=== PATIENT | female | born 1985 | race Caucasian/White ===

== ENCOUNTER 2016-11-11 19:45 | Emergency (ER) | payer SELFPAY ==
[~2016-11-11] VITALS: Ht 165.1 cm; Wt 123.2 kg
[~2016-11-11 19:45] MED LIST: AMOX/K CLAV875 M1 PO; AMOXICILLIN500 MG PO; FLEXERIL PO; FLONASE NASAL50 MCG; LORTAB 10-325 M1 TAB PO; MEDDOSEPAK PO; NAPROXEN375 MG PO; ROBITUSSIN AC10 ML PO; TUSSIONEX1 ML PO; ULTRAM50 M1 PO
[2016-11-11 21:10] VITALS: BP 116/73
== END 2016-11-11 21:15 | disposition home or self-care (01) | DRG 761 ==
LOC: ED 19:45
DX: N93.8 Other specified abnormal uterine and vaginal bleeding (principal)

== ENCOUNTER 2017-03-06 20:26 | Emergency (ER) | payer BC ==
[~2017-03-06] VITALS: Ht 165.1 cm; Wt 126.4 kg
[2017-03-06] MEDS ORDERED: NAPROSYN500 MG PO (20:49)
[2017-03-06 20:57] VITALS: BP 135/81
== END 2017-03-06 21:00 | disposition home or self-care (01) | DRG 159 ==
LOC: ED 20:26
DX: M26.601 Right temporomandibular joint disorder, unspecified (principal); H92.01 Otalgia, right ear

== ENCOUNTER 2017-04-18 04:32 | Emergency (ER) | payer BC ==
[~2017-04-18] VITALS: Ht 165.1 cm; Wt 100.0 kg
[~2017-04-18 04:32] MED LIST changes: +NAPROSYN500 MG PO
[2017-04-18] MEDS ORDERED: LORTAB 1010 MG PO (04:57)
[2017-04-18] MEDS ORDERED: AMOXICILLIN500 MG PO (04:57)
[2017-04-18 04:59] VITALS: BP 139/88
== END 2017-04-18 05:04 | disposition home or self-care (01) | DRG 159 ==
LOC: ED 04:32
DX: K04.7 Periapical abscess without sinus (principal); K08.89 Other specified disorders of teeth and supporting structures

== ENCOUNTER 2017-08-13 09:57 | Emergency (ER) | payer BC ==
[~2017-08-13] VITALS: Ht 165.1 cm; Wt 120.0 kg
[~2017-08-13 09:57] MED LIST changes: +LORTAB 1010 MG PO
[2017-08-13 11:29] LABS: HEMATOCRIT 39.7 % (37.0-47.0); HEMOGLOBIN 12.2 g/dl (12.0-16.0); IMMATURE GRANULOCYTES 0.4 % (0.0-1.0); MEAN CELL VOLUME 85.2 fL CALC (80.0-100.0); MEAN CORPUSCULAR HGB 26.2 pG CALC (26.0-32.0); MEAN CORPUSCULAR HGB CONC 30.7 g/L CALC (32.0-36.0); NEUT# 5.35 thou/uL (2.00-7.15); RED BLOOD COUNT 4.66 mill/uL (4.20-5.60); RED CELL DISTRI WIDTH 14.1 % (11.5-15.5)
[2017-08-13 11:42] LABS: ANION GAP 17 (6-22 (CALC)); BUN 12 mg/dL (7-17); BUN/CREATININE RATIO 15 (12-20 (CALC)); CARBON DIOXIDE 24 mmol/l (22-30); CHLORIDE 103 mmol/l (95-108); CREATININE 0.8 mg/dL (0.5-1.0); GFR > 60 ML/MIN (>=60 (CALC)); GFR FOR AFR.AMER. > 60 ML/MIN (>=60 (CALC)); POTASSIUM 3.8 mmol/l (3.5-5.1); SODIUM 140 mmol/l (137-146)
[2017-08-13] MEDS ORDERED: MOTRIN400 MG PO (12:13)
[2017-08-13] MEDS ORDERED: ASPERCREME LIDOCA41 TOP (12:13)
[2017-08-13 12:30] VITALS: BP 136/88
== END 2017-08-13 12:30 | disposition home or self-care (01) | DRG 563 ==
LOC: ED 09:57
PROVIDERS: Family Medicine
DX: S46.911A Strain of unspecified muscle, fascia and tendon at shoulder and upper arm level, right arm, initial encounter (principal); R55 Syncope and collapse; W01.0XXA Fall on same level from slipping, tripping and stumbling without subsequent striking against object, initial encounter; Y92.009 Unspecified place in unspecified non-institutional (private) residence as the place of occurrence of the external cause

== ENCOUNTER 2017-11-02 04:42 | Emergency (ER) | payer BC ==
[~2017-11-02] VITALS: Ht 165.1 cm; Wt 125.0 kg
[~2017-11-02 04:42] MED LIST changes: +ASPERCREME LIDOCA41 TOP; +MOTRIN400 MG PO
[2017-11-02] MEDS ORDERED: POLYTRIM OS (05:01)
[2017-11-02 05:08] VITALS: BP 123/67
== END 2017-11-02 05:19 | disposition home or self-care (01) | DRG 125 ==
LOC: ED 04:42
DX: H00.016 Hordeolum externum left eye, unspecified eyelid (principal)

== ENCOUNTER 2018-01-04 05:03 | Emergency (ER) | payer BC ==
[~2018-01-04] VITALS: Ht 165.1 cm; Wt 125.0 kg
[~2018-01-04 05:03] MED LIST changes: +POLYTRIM OS
[2018-01-04] MEDS ORDERED: PERCOCET 5/325M1 TAB PO (05:54)
[2018-01-04] MEDS ORDERED: AMOXICILLIN500 MG PO (05:54)
[2018-01-04 06:06] VITALS: BP 118/66
== END 2018-01-04 06:10 | disposition home or self-care (01) | DRG 153 ==
LOC: ED 05:03
DX: H66.93 Otitis media, unspecified, bilateral (principal)

== ENCOUNTER 2018-01-25 10:08 | Emergency (ER) | payer BC ==
[~2018-01-25] VITALS: Ht 165.1 cm; Wt 128.1 kg
[~2018-01-25 10:08] MED LIST changes: +PERCOCET 5/325M1 TAB PO
[2018-01-25 11:47] LABS: HEMATOCRIT 41.3 % (37.0-47.0); HEMOGLOBIN 12.8 g/dl (12.0-16.0); IMMATURE GRANULOCYTES 0.3 % (0.0-5.0); MEAN CELL VOLUME 85.2 fL CALC (80.0-100.0); MEAN CORPUSCULAR HGB 26.4 pG CALC (26.0-32.0); NEUT# 5.06 thou/uL (2.00-7.15); RED BLOOD COUNT 4.85 mill/uL (4.20-5.60)
[2018-01-25 11:49] LABS: URINE BILIRUBIN - DIPSTICK NEGATIVE (NEGATIVE); URINE BLOOD DIPSTICK NEGATIVE (NEGATIVE); URINE COLOR YELLOW; URINE GLUCOSE - DIPSTICK NEGATIVE (NEGATIVE); URINE KETONE NEGATIVE (NEGATIVE); URINE LEUK ESTERASE NEGATIVE (NEGATIVE); URINE NITRITE - DIPSTICK NEGATIVE (Negative); URINE PROTEIN - DIPSTICK NEGATIVE (NEG-TRACE); URINE UROBILINOGEN - DIPSTICK 0.2 E.U./dL (0.2)
[2018-01-25 11:52] LABS: URINE CLARITY CLEAR
[2018-01-25 12:03] LABS: ALBUMIN 4.3 g/dL (3.2-5.0); ALKALINE PHOSPHATASE 87 u/l (38-126); ANION GAP 15 (6-22 (CALC)); BILIRUBIN, TOTAL 0.5 mg/dL (0.0-1.4); BUN 14 mg/dL (7-17); BUN/CREATININE RATIO 20 (12-20 (CALC)); CARBON DIOXIDE 25 mmol/l (22-30); CHLORIDE 104 mmol/l (95-108); CREATININE 0.7 mg/dL (0.5-1.0); GFR > 60 ML/MIN (>=60 (CALC)); GFR FOR AFR.AMER. > 60 ML/MIN (>=60 (CALC)); LIPASE 45 u/l (23-300); POTASSIUM 4.7 mmol/l (3.5-5.1); SGOT/AST 23 u/l (14-36); SODIUM 139 mmol/l (137-146); TOTAL PROTEIN 7.8 g/dL (6.3-8.2)
[2018-01-25] MEDS ORDERED: PEPCID20 MG PO (13:11)
[2018-01-25 13:20] VITALS: BP 117/74
== END 2018-01-25 13:20 | disposition home or self-care (01) | DRG 392 ==
LOC: ED 10:08
DX: R10.31 Right lower quadrant pain (principal); E66.9 Obesity, unspecified
CPT/HCPCS: Q9967

== ENCOUNTER 2018-02-21 20:32 | Emergency (ER) | payer BC ==
[~2018-02-21] VITALS: Ht 165.1 cm; Wt 129.2 kg
[~2018-02-21 20:32] MED LIST changes: +PEPCID20 MG PO
[2018-02-21 20:35] VITALS: BP 127/77
[2018-02-21 21:19] LABS: HEMOGLOBIN 10.9 g/dl (12.0-16.0); IMMATURE GRANULOCYTES 1.1 % (0.0-5.0); MEAN CELL VOLUME 85.1 fL CALC (80.0-100.0); MEAN CORPUSCULAR HGB 26.7 pG CALC (26.0-32.0); MEAN CORPUSCULAR HGB CONC 31.3 g/L CALC (32.0-36.0); RED BLOOD COUNT 4.09 mill/uL (4.20-5.60); RED CELL DISTRI WIDTH 14.9 % (11.5-15.5)
[2018-02-21 21:20] LABS: URINE BILIRUBIN - DIPSTICK NEGATIVE (NEGATIVE); URINE BLOOD DIPSTICK NEGATIVE (NEGATIVE); URINE COLOR YELLOW; URINE GLUCOSE - DIPSTICK NEGATIVE (NEGATIVE); URINE KETONE NEGATIVE (NEGATIVE); URINE LEUK ESTERASE NEGATIVE (NEGATIVE); URINE NITRITE - DIPSTICK NEGATIVE (Negative); URINE PH 5.5 (4.5-8.0); URINE PROTEIN - DIPSTICK NEGATIVE (NEG-TRACE); URINE SPECIFIC GRAVITY >=1.030; URINE UROBILINOGEN - DIPSTICK 0.2 E.U./dL (0.2)
[2018-02-21 21:37] LABS: HEMATOCRIT 34.8 % (37.0-47.0); MANUAL DIFFERENTIAL YES; PLATELET COUNT 243 thou/uL (130-400)
[2018-02-21 21:38] LABS: BAND 17 % (0-8)
[2018-02-21 21:46] LABS: INFLUENZA A NONE DETECTED (NONE DETECT); INFLUENZA B NONE DETECTED (NONE DETECT)
[2018-02-21 21:48] LABS: URINE CLARITY CLEAR
[2018-02-21] MEDS ORDERED: BACTRIM DS1 TAB PO (22:09)
[2018-02-21] MEDS ORDERED: FIORICET PO (22:09)
== END 2018-02-21 22:24 | disposition home or self-care (01) | DRG 103 ==
LOC: ED 20:32
PROVIDERS: Family Medicine
DX: G44.209 Tension-type headache, unspecified, not intractable (principal); N61.0 Mastitis without abscess; M25.561 Pain in right knee; R50.9 Fever, unspecified

== ENCOUNTER 2018-09-05 19:27 | Emergency (ER) | payer BC ==
[~2018-09-05] VITALS: Ht 165.1 cm; Wt 118.2 kg
[~2018-09-05 19:27] MED LIST changes: +BACTRIM DS1 TAB PO; +FIORICET PO
[2018-09-05] MEDS ORDERED: CORTISPORIN OTI10 M2 AU (20:28)
[2018-09-05] MEDS ORDERED: AMOXICILLIN875 MG PO (20:28)
[2018-09-05 20:30] VITALS: BP 127/79
== END 2018-09-05 20:30 | disposition home or self-care (01) | DRG 153 ==
LOC: ED 19:27
DX: H66.93 Otitis media, unspecified, bilateral (principal); H60.93 Unspecified otitis externa, bilateral

== ENCOUNTER 2018-10-23 23:08 | Emergency (ER) | payer BC ==
[~2018-10-23] VITALS: Ht 165.1 cm; Wt 117.0 kg
[~2018-10-23 23:08] MED LIST changes: +AMOXICILLIN875 MG PO; +CORTISPORIN OTI10 M2 AU
[2018-10-23] MEDS ORDERED: BREO ELLIPTA1 INH IN (23:25)
[2018-10-23] MEDS ORDERED: VENTOLIN HFA IN (23:26)
[2018-10-24 01:00] VITALS: BP 118/67
== END 2018-10-24 01:04 | disposition home or self-care (01) | DRG 203 ==
LOC: ED 23:08
DX: J45.909 Unspecified asthma, uncomplicated (principal)

== ENCOUNTER 2019-02-13 19:21 | Emergency (ER) | payer BC ==
[~2019-02-13] VITALS: Ht 165.1 cm; Wt 124.6 kg
[~2019-02-13 19:21] MED LIST changes: +BREO ELLIPTA1 INH IN; +VENTOLIN HFA IN
[2019-02-13] MEDS ORDERED: AMOXICILLIN875 MG PO (19:57)
[2019-02-13] MEDS ORDERED: CORTISPORIN OTI10 M2 AU (19:57)
[2019-02-13 20:07] VITALS: BP 123/70
== END 2019-02-13 20:06 | disposition home or self-care (01) | DRG 156 ==
LOC: ED 19:21
DX: H60.91 Unspecified otitis externa, right ear (principal); H66.91 Otitis media, unspecified, right ear

== ENCOUNTER 2019-11-08 13:19 | Emergency (ER) | payer BC ==
[~2019-11-08] VITALS: Ht 165.1 cm; Wt 120.0 kg
[2019-11-08 14:00] LABS: URINE BILIRUBIN - DIPSTICK NEGATIVE (NEGATIVE); URINE BLOOD DIPSTICK NEGATIVE (NEGATIVE); URINE COLOR YELLOW; URINE GLUCOSE - DIPSTICK NEGATIVE (NEGATIVE); URINE KETONE NEGATIVE (NEGATIVE); URINE LEUK ESTERASE NEGATIVE (NEGATIVE); URINE NITRITE - DIPSTICK NEGATIVE (Negative); URINE PROTEIN - DIPSTICK NEGATIVE (NEG-TRACE); URINE SPECIFIC GRAVITY <=1.005; URINE UROBILINOGEN - DIPSTICK 0.2 E.U./dL (0.2)
[2019-11-08 14:01] LABS: HEMATOCRIT 40.5 % (37.0-47.0); HEMOGLOBIN 12.3 g/dl (12.0-16.0); IMMATURE GRANULOCYTES 0.3 % (0.0-5.0); MEAN CELL VOLUME 83.7 fL CALC (80.0-100.0); MEAN CORPUSCULAR HGB 25.4 pG CALC (26.0-32.0); MEAN CORPUSCULAR HGB CONC 30.4 g/dL CAL (32.0-36.0); NEUT# 5.35 thou/uL (2.00-7.15); RED BLOOD COUNT 4.84 mill/uL (4.20-5.60)
[2019-11-08 14:12] LABS: ALBUMIN 4.5 g/dL (3.2-5.0); ALKALINE PHOSPHATASE 95 u/l (38-126); ANION GAP 15 (6-22 (CALC)); BILIRUBIN, TOTAL 0.3 mg/dL (0.0-1.4); BUN 13 mg/dL (7-17); BUN/CREATININE RATIO 16 (12-20 (CALC)); CARBON DIOXIDE 26 mmol/l (22-30); CHLORIDE 100 mmol/l (95-108); CREATININE 0.8 mg/dL (0.5-1.0); GFR > 60 ML/MIN (>=60 (CALC)); GFR FOR AFR.AMER. > 60 ML/MIN (>=60 (CALC)); MAGNESIUM 2.1 mg/dL (1.6-2.3); SGOT/AST 19 u/l (14-36); SODIUM 137 mmol/l (137-146); TOTAL PROTEIN 7.8 g/dL (6.3-8.2)
[2019-11-08 14:16] LABS: POTASSIUM 3.7 mmol/l (3.5-5.1)
[2019-11-08 16:06] VITALS: BP 152/70
== END 2019-11-08 16:20 | disposition home or self-care (01) | DRG 103 ==
LOC: ED 13:19
DX: R51 Headache (principal)

== ENCOUNTER 2021-01-29 09:47 | Emergency (ER) | payer SELFPAY ==
[~2021-01-29] VITALS: Ht 165.1 cm; Wt 137.0 kg
[2021-01-29 10:50] VITALS: BP 138/96
[2021-01-29 10:56] LABS: HEMOGLOBIN 12.2 g/dl (12.0-16.0); IMMATURE GRANULOCYTES 0.3 % (0.0-5.0); MEAN CELL VOLUME 87.2 fL CALC (80.0-100.0); MEAN CORPUSCULAR HGB CONC 29.8 g/dL CAL (32.0-36.0); NEUT# 5.11 thou/uL (2.00-7.15); RED BLOOD COUNT 4.7 mill/uL (4.20-5.60); RED CELL DISTRI WIDTH 14.5 % (11.5-15.5)
[2021-01-29 11:14] LABS: ALBUMIN 4.2 g/dL (3.2-5.0); ALKALINE PHOSPHATASE 82 u/l (38-126); ANION GAP 12 (6-22 (CALC)); BUN 11 mg/dL (7-17); BUN/CREATININE RATIO 14 (12-20 (CALC)); CARBON DIOXIDE 28 mmol/l (22-30); CHLORIDE 102 mmol/l (95-108); CREATININE 0.8 mg/dL (0.5-1.0); GFR > 60 ML/MIN (>=60 (CALC)); GFR FOR AFR.AMER. > 60 ML/MIN (>=60 (CALC)); POTASSIUM 4.1 mmol/l (3.5-5.1); SGOT/AST 19 u/l (14-36); SODIUM 138 mmol/l (137-146); TOTAL PROTEIN 7.8 g/dL (6.3-8.2)
[2021-01-29 11:18] LABS: BILIRUBIN, TOTAL 0.5 mg/dL (0.0-1.4)
[2021-01-29 11:44] LABS: TSH, 3RD GENERATION 0.75 uIU/mL (0.47 - 4.68)
== END 2021-01-29 13:59 | disposition home or self-care (01) | DRG 103 ==
LOC: ED 09:47
PROVIDERS: Emergency Medicine
DX: R51.9 Headache, unspecified (principal); R05.9 Cough, unspecified; Z86.79 Personal history of other diseases of the circulatory system; Z20.822 Contact with and (suspected) exposure to COVID-19

== ENCOUNTER 2021-04-25 10:52 | Emergency (ER) | payer SELFPAY ==
[~2021-04-25] VITALS: Ht 165.1 cm; Wt 118.0 kg
[2021-04-25] MEDS ORDERED: FLOXIN OTIC0.3 % AD ×2 (12:16→13:15)
[2021-04-25] MEDS ORDERED: AMOX/K CLAV875 M1 PO ×2 (12:16→13:15)
[2021-04-25 13:29] VITALS: BP 125/79
== END 2021-04-25 13:29 | disposition home or self-care (01) | DRG 153 ==
LOC: ED 10:52
DX: H66.91 Otitis media, unspecified, right ear (principal); J45.909 Unspecified asthma, uncomplicated; Z20.822 Contact with and (suspected) exposure to COVID-19

== ENCOUNTER 2021-08-27 08:21 | Emergency (ER) | payer SELFPAY ==
[~2021-08-27] VITALS: Ht 165.1 cm; Wt 131.8 kg
[~2021-08-27 08:21] MED LIST changes: +FLOXIN OTIC0.3 % AD
[2021-08-27 08:54] VITALS: BP 131/80
[2021-08-27 09:00] VITALS: BP 116/80
[2021-08-27] MEDS ORDERED: ZOLOFT25 MG PO (09:00)
[2021-08-27 09:46] LABS: URINE BILIRUBIN - DIPSTICK NEGATIVE (NEGATIVE); URINE BLOOD DIPSTICK NEGATIVE (NEGATIVE); URINE COLOR YELLOW; URINE GLUCOSE - DIPSTICK NEGATIVE (NEGATIVE); URINE KETONE NEGATIVE (NEGATIVE); URINE LEUK ESTERASE NEGATIVE (NEGATIVE); URINE PH 7.5 (4.5-8.0); URINE PROTEIN - DIPSTICK NEGATIVE (NEG-TRACE); URINE SPECIFIC GRAVITY 1.015; URINE UROBILINOGEN - DIPSTICK 0.2 E.U./dL (0.2)
[2021-08-27 09:48] LABS: URINE NITRITE - DIPSTICK NEGATIVE (Negative)
[2021-08-27 10:00] LABS: HEMOGLOBIN 10.7 g/dl (12.0-16.0); IMMATURE GRANULOCYTES 0.4 % (0.0-5.0); MEAN CORPUSCULAR HGB 26.4 pG CALC (26.0-32.0); NEUT# 5.31 thou/uL (2.00-7.15); RED BLOOD COUNT 4.06 mill/uL (4.20-5.60); RED CELL DISTRI WIDTH 14.2 % (11.5-15.5)
[2021-08-27 10:08] LABS: HEMATOCRIT 34.5 % (37.0-47.0)
[2021-08-27 10:12] LABS: ALKALINE PHOSPHATASE 79 u/l (38-126); BILIRUBIN, TOTAL 0.4 mg/dL (0.0-1.4); BUN 11 mg/dL (7-17); BUN/CREATININE RATIO 11 (12-20 (CALC)); CARBON DIOXIDE 27 mmol/l (22-30); CHLORIDE 105 mmol/l (95-108); GFR > 60 ML/MIN (>=60 (CALC)); GFR FOR AFR.AMER. > 60 ML/MIN (>=60 (CALC)); SGOT/AST 22 u/l (14-36); SODIUM 139 mmol/l (137-146); TOTAL PROTEIN 7.6 g/dL (6.3-8.2)
[2021-08-27 10:14] LABS: ANION GAP 11 (6-22 (CALC)); POTASSIUM 3.7 mmol/l (3.5-5.1)
[2021-08-27 10:24] LABS: MYOGLOBIN 35 ng/mL (0 - 62)
[2021-08-27] MEDS ORDERED: MECLIZINE25 MG PO (10:42)
[2021-08-27] MEDS ORDERED: ONDANSETRON4 MG PO (10:42)
[2021-08-27] MEDS ORDERED: MEDDOSEPAK PO (10:42)
[2021-08-27 10:48] VITALS: BP 116/80
== END 2021-08-27 11:01 | disposition home or self-care (01) | DRG 149 ==
LOC: ED 08:21
PROVIDERS: Emergency Medicine
DX: R42 Dizziness and giddiness (principal); J45.909 Unspecified asthma, uncomplicated

== ENCOUNTER 2022-01-02 08:17 | Emergency (ER) | payer SELFPAY ==
[~2022-01-02] VITALS: Ht 165.1 cm; Wt 127.0 kg
[~2022-01-02 08:17] MED LIST changes: +MECLIZINE25 MG PO; +ONDANSETRON4 MG PO; +ZOLOFT25 MG PO
[2022-01-02 08:37] VITALS: BP 116/74
[2022-01-02 09:27] LABS: URINE BILIRUBIN - DIPSTICK NEGATIVE (NEGATIVE); URINE BLOOD DIPSTICK NEGATIVE (NEGATIVE); URINE COLOR YELLOW; URINE GLUCOSE - DIPSTICK NEGATIVE (NEGATIVE); URINE KETONE NEGATIVE (NEGATIVE); URINE LEUK ESTERASE TRACE (NEGATIVE); URINE PROTEIN - DIPSTICK NEGATIVE (NEG-TRACE); URINE SPECIFIC GRAVITY 1.025; URINE UROBILINOGEN - DIPSTICK 0.2 E.U./dL (0.2)
[2022-01-02 09:29] LABS: URINE NITRITE - DIPSTICK NEGATIVE (Negative)
[2022-01-02] MEDS ORDERED: KEFLEX500 MG PO ×2 (11:07→11:24)
[2022-01-02] MEDS ORDERED: ROBITUSSIN AC10 ML PO ×2 (11:14→11:24)
[2022-01-02 11:18] VITALS: BP 116/74
== END 2022-01-02 11:28 | disposition home or self-care (01) | DRG 153 ==
LOC: ED 08:17
PROVIDERS: Emergency Medicine
DX: J06.9 Acute upper respiratory infection, unspecified (principal); J45.909 Unspecified asthma, uncomplicated; Z20.822 Contact with and (suspected) exposure to COVID-19

== ENCOUNTER 2022-03-28 17:27 | Emergency (ER) | payer BC ==
[~2022-03-28] VITALS: Ht 165.1 cm; Wt 136.4 kg
[~2022-03-28 17:27] MED LIST changes: +KEFLEX500 MG PO
[2022-03-28 20:55] LABS: HEMATOCRIT 39.8 % (37.0-47.0); IMMATURE GRANULOCYTES 0.3 % (0.0-5.0); MEAN CELL VOLUME 84.9 fL CALC (80.0-100.0); MEAN CORPUSCULAR HGB 27.3 pG CALC (26.0-32.0); MEAN CORPUSCULAR HGB CONC 32.2 g/dL CAL (32.0-36.0); NEUT# 6.14 thou/uL (2.00-7.15); RED BLOOD COUNT 4.69 mill/uL (4.20-5.60); RED CELL DISTRI WIDTH 14.4 % (11.5-15.5)
[2022-03-28 20:56] LABS: HEMOGLOBIN 12.8 g/dl (12.0-16.0)
[2022-03-28 21:12] LABS: ALBUMIN 4.4 g/dL (3.2-5.0); ALKALINE PHOSPHATASE 101 u/l (38-126); ANION GAP 12 (6-22 (CALC)); BILIRUBIN, TOTAL 0.3 mg/dL (0.0-1.4); BUN 13 mg/dL (7-17); BUN/CREATININE RATIO 15 (12-20 (CALC)); CARBON DIOXIDE 26 mmol/l (22-30); CHLORIDE 102 mmol/l (95-108); CREATININE 0.8 mg/dL (0.5-1.0); GFR FOR AFR.AMER. > 60 ML/MIN (>=60 (CALC)); GFR OTHER RACES > 60 ML/MIN (>=60 (CALC)); SGOT/AST 24 u/l (14-36); SODIUM 136 mmol/l (137-146)
[2022-03-28 22:38] LABS: URINE BILIRUBIN - DIPSTICK NEGATIVE (NEGATIVE); URINE BLOOD DIPSTICK NEGATIVE (NEGATIVE); URINE COLOR YELLOW; URINE GLUCOSE - DIPSTICK NEGATIVE (NEGATIVE); URINE KETONE NEGATIVE (NEGATIVE); URINE LEUK ESTERASE NEGATIVE (NEGATIVE); URINE PROTEIN - DIPSTICK NEGATIVE (NEG-TRACE); URINE SPECIFIC GRAVITY >=1.030; URINE UROBILINOGEN - DIPSTICK 0.2 E.U./dL (0.2)
[2022-03-28 22:39] LABS: URINE NITRITE - DIPSTICK NEGATIVE (Negative)
[2022-03-28] MEDS ORDERED: VOLTAREN75 MG PO (23:06)
[2022-03-28 23:16] VITALS: BP 144/81
== END 2022-03-28 23:59 | disposition home or self-care (01) | DRG 103 ==
LOC: ED 17:27
PROVIDERS: Family Medicine
DX: R51.9 Headache, unspecified (principal); M54.81 Occipital neuralgia

== ENCOUNTER 2022-06-10 17:28 | Emergency (ER) | payer BC ==
[~2022-06-10] VITALS: Ht 165.1 cm; Wt 137.6 kg
[~2022-06-10 17:28] MED LIST changes: +VOLTAREN75 MG PO
[2022-06-10 18:39] LABS: BASO% 0.7 % (0-3); EOS% 4.8 % (0-8); HEMATOCRIT 41.3 % (37.0-47.0); HEMOGLOBIN 12.1 g/dl (12.0-16.0); IMMATURE GRANULOCYTES 0.1 % (0.0-5.0); LYMPH% 30.6 % (15-41); MEAN CELL VOLUME 88.2 fL CALC (80.0-100.0); MEAN CORPUSCULAR HGB 25.9 pG CALC (26.0-32.0); MEAN CORPUSCULAR HGB CONC 29.3 g/dL CAL (32.0-36.0); MONO% 9.9 % (2-13); NEUT# 5.3 thou/uL (2.00-7.15); NEUT% 53.9 % (42-76); RED BLOOD COUNT 4.68 mill/uL (4.20-5.60); RED CELL DISTRI WIDTH 14.2 % (11.5-15.5)
[2022-06-10 18:42] LABS: URINE BILIRUBIN - DIPSTICK NEGATIVE (NEGATIVE); URINE BLOOD DIPSTICK LARGE (NEGATIVE); URINE COLOR RED; URINE GLUCOSE - DIPSTICK NEGATIVE (NEGATIVE); URINE KETONE TRACE mg/dL (NEGATIVE); URINE PH 8.5 (4.5-8.0); URINE PROTEIN - DIPSTICK >=300 mg/dL (NEG-TRACE)
[2022-06-10 18:45] LABS: URINE LEUK ESTERASE MODERATE (NEGATIVE); URINE NITRITE - DIPSTICK POSITIVE (Negative)
[2022-06-10 18:46] LABS: URINE RBC TNTC RBC/hpf (0-5); URINE SQUAMOUS EPITHELIAL CELL FEW EPI/hpf (0-FEW)
[2022-06-10 18:47] LABS: ALBUMIN 4.3 g/dL (3.2-5.0); ALKALINE PHOSPHATASE 81 u/l (38-126); ANION GAP 14 (6-22 (CALC)); BILIRUBIN, TOTAL 0.2 mg/dL (0.02-1.3); BUN 10 mg/dL (7-17); BUN/CREATININE RATIO 13 (12-20 (CALC)); CHLORIDE 107 mmol/l (95-108); CREATININE 0.8 mg/dL (0.5-1.0); GFR FOR AFR.AMER. > 60 ML/MIN (>=60 (CALC)); GFR OTHER RACES > 60 ML/MIN (>=60 (CALC)); LIPASE 33 u/l (23-300); POTASSIUM 3.9 mmol/l (3.5-5.1); SGOT/AST 19 u/l (14-36); SODIUM 137 mmol/l (137-146); TOTAL PROTEIN 8.4 g/dL (6.3-8.2)
[2022-06-10 18:49] LABS: CARBON DIOXIDE 20 mmol/l (22-30)
[2022-06-10] MEDS ORDERED: AMOX/K CLAV875 M1 PO (21:33)
[2022-06-10 21:35] VITALS: BP 131/80
== END 2022-06-10 21:47 | disposition home or self-care (01) | DRG 392 ==
LOC: ED 17:28
PROVIDERS: Family Medicine
DX: R10.33 Periumbilical pain (principal); E66.01 Morbid (severe) obesity due to excess calories; J45.909 Unspecified asthma, uncomplicated